=== PATIENT | female | born 1990 | race Caucasian/White ===

== ENCOUNTER 2024-11-26 19:26 | Emergency (ER) | payer OTHER, SELFPAY ==
[2024-11-26 19:29] VITALS: BP 119/71
--- NOTE | 2024-11-26 19:35 | EDRN ---
Attempted to start orders in waiting area, pt refusing to give urine and blood at this time. Pt states 'I know I have a UTI and a different doctor already prescribed me antibiotics at urgent care'
[2024-11-26 21:19] LABS: Urine Albumin Negative (Neg - Trace); Urine Bilirubin Negative (Negative); Urine Character Clear (Clear); Urine Color Yellow; Urine Glucose Negative (Negative); Urine Ketone Negative (Negative); Urine Leukocyte 1+ (Negative); Urine Nitrite Negative (Negative); Urine Occult Blood 1+ (Negative); Urine Urobilinogen Negative (Neg - 1+)
[2024-11-26 21:20] LABS: % Basophils 0.5 % (0-2); % Immature Granulocytes 0.3 % (0-0.5); % Lymphocytes 12.3 % (20.5-51.1); % Monocytes 5.4 % (1.7-9.3); % Neutrophils 80.5 % (42.2-75.2); Absolute Basophils 0.1 10^3/uL (0-0.2); Absolute Eosinophils 0.1 10^3/uL (0-0.7); Absolute Lymphocytes 1.4 10^3/uL (1.2-3.4); Absolute Monocytes 0.6 10^3/uL (0.1-0.6); Absolute Neutrophils 9.3 10^3/uL (1.4-6.5); Hematocrit 44.5 % (37.0-47.0); Hemoglobin 14.7 g/dL (12.0-16.0); Mean Corpuscular Hgb 30.6 pg (27.0-31.0); Mean Corpuscular Volume 92.7 fL (81.0-99.0); Mean Platelet Volume 9.4 fL (7.4-10.4); Nucleated Red Blood Cells % 0 %; Platelet Count 261 10^3/uL (130-400); Red Cell Dist. Width 13.9 % (11.5-14.5); White Blood Cell Count 11.5 10^3/uL (4.8-10.8)
[2024-11-26] MEDS: OMNIPAQUE 50 ML PO (21:24)
[2024-11-26 21:30] LABS: HCG, Serum Qualitative Screen Negative
[2024-11-26 21:30] LABS: Urine Squamous Cell >30 /LPF (Few)
[2024-11-26 21:31] LABS: Urine Bacteria Few (Negative); Urine White Cell 26-30 /HPF (0-5)
[2024-11-26 21:35] LABS: ALT (SGPT) 14 U/L (0-35); AST (SGOT) 18 U/L (14-36); Albumin 4.6 g/dl (3.5-5.0); Alkaline Phosphatase 60 U/L (38-126); Blood Urea Nitrogen 7 mg/dl (7-17); Calcium 9.9 mg/dl (8.4-10.2); Carbon Dioxide 25 mmol/L (22-30); Chloride 106 mmol/L (98-107); Glucose 92 mg/dl (70-99); Lipase 31 U/L (23-300); Potassium 4.3 mmol/L (3.5-5.1); Sodium 139 mmol/L (135-145); Total Bilirubin 1.5 mg/dl (0.2-1.3); Total Protein 7.7 g/dl (6.3-8.2); eGFR > 60.00
--- NOTE | 2024-11-26 21:57 | ED.GENMED ---
History of Present Illness
General
Chief Complaint: Abdominal Symptoms
Source: patient
Time Seen by Provider: 11/26/24 20:40
History of Present Illness
History of Present Illness:
Note:
CHIEF COMPLAINT(S)
Abdominal pain.
HISTORY OF PRESENT ILLNESS
The patient is a 34-year-old female who presented with severe abdominal pain. The pain began this morning when she woke to urinate and experienced a burning sensation typical of a urinary tract infection. The patient described the pain as involving
her entire abdomen, feeling firm and uncomfortable, especially with movement. She reported attempting self-management with increased water and cranberry juice intake. The patient sought evaluation at an urgent care center where antibiotics were
prescribed, although she has yet to collect them. Following the recommendations from urgent care, the patient expressed significant pain, describing it as severe enough to induce tears with movement. Additional symptoms include tactile fever, nausea
but no vomiting, urinary symptoms have since seem to have subsided. Patient does note a history of pyelonephritis in the past.
PAST SURGICAL HISTORY
History of hernia surgery as an .
SOCIAL HISTORY
Current marijuana use was acknowledged. The patient reported difficulties in obtaining asthma medication due to lack of insurance.
REVIEW OF SYSTEMS
- Gastrointestinal: Abdominal pain, nausea.
- Genitourinary: Burning sensation during urination, urgency, and frequency typical of UTI.
- Constitutional: Fever, chills, and sweats were present.
Past History
Past History
ED Past Medical History: Asthma
ED Past Surgical History: Orthopedic and Other
Review of Systems
Review of Systems
All Other Systems: ROS reviewed and negative except as documented in HPI and ROS
Phy Exam
Physical Exam
Physical Exam:
GENERAL: Alert , in no apparent distress
EYE: clear conjunctiva b/l
HEAD: NCAT
ENT: o/p clr, mmm.
CARDIAC: Regular rate and rhythm .
LUNGS: Clear breath sounds bilaterally, no acute respiratory distress, no wheezes/rales/rhonchi
ABDOMEN: Soft, grimacing with palpation in the right lower quadrant, no r/g, no cvat, negative Wolf sign, tenderness at McBurney's point
NEUROLOGICAL: Alert and oriented
SKIN: Warm and dry, skin intact.
MUSCULOSKELETAL: No edema, well perfused.
PSYCH: Normal and appropriate interaction.
Scores
Heart Failure Risk
Heart Failure Risk Score: Not Applicable
Heart Score for Chest Pain Patients
STEMI patient?: Not applicable
Withdrawal Assessment of Alcohol
Withdrawal Assessment Completed?: Not applicable
Course
Orders/Labs/Results
Orders:
Orders
11/26/24 20:46
Test Result ONCE
11/26/24 20:54
CT Abd/pel W Iv And Oral Contr Urgent
Comment:
Reason For Exam: RLQ pain
Iohexol [Omnipaque] See Protocol PO NOW STA
11/26/24 21:02
Complete Blood Count/With Diff Urgent
Comprehensive Metabolic Panel Urgent
HCG, Serum Qualitative Screen Urgent
Lipase Urgent
11/26/24 21:12
Urinalysis Reflex To Culture Urgent
Date Specimen was Collected: 11/26/24
Time Specimen was Collected: 21:04
Urine Microscopic Reflex Cult Urgent
Urine Culture Urgent
LACIE Source: U
Specimen Description:
Date Specimen was Collected: 11/26/24
Time Specimen was Collected: 21:04
11/27/24 00:10
Amoxicillin 875 mg/Clav 125 mg [Augmentin 875 mg/125 mg] 1 tablet PO NOW STA
Abnormal Lab Results
11/26/24 11/26/24
21:02 21:12
WBC 11.5 H 10^3/uL
(4.8-10.8)
Absolute Neuts (auto) 9.3 H 10^3/uL
(1.4-6.5)
Neutrophils % 80.5 H %
(42.2-75.2)
Lymphocytes % 12.3 L %
(20.5-51.1)
Total Bilirubin 1.5 H mg/dl
(0.2-1.3)
Ur Occult Blood Reflex 1+ A
(Negative)
Leukocyte Esterase Rfl 1+ A
(Negative)
Urine RBC 3-6 A /HPF
(0-2)
Urine WBC (Reflex) 26-30 A /HPF
(0-5)
Urine Bacteria (Reflex) Few A
(Negative)
11/26/24 21:02
11/26/24 21:02
Vital Signs
Initial and Last Documented VS:
Initial Vital Signs
Temp Pulse Resp BP Pulse Ox
98.4 F 89 16 119/71 99
11/26/24 19:29 11/26/24 19:29 11/26/24 19:29 11/26/24 19:29 11/26/24 19:29
Last Documented Vital Signs
Temp Pulse Resp BP Pulse Ox
98.3 F 77 18 127/62 100
11/27/24 00:00 11/27/24 00:00 11/27/24 00:00 11/27/24 00:00 11/27/24 00:00
MDM/Problems Addressed
Differential Diagnosis Includes:
The Differential Diagnosis includes, in no particular order and is not limited to:
- Pyelonephritis
- Appendicitis
- Nephrolithiasis
- Urinary tract infection
- Diverticulitis
- Gastroenteritis
- Pelvic inflammatory disease
- Ectopic
- Ovarian cyst rupture
- Inflammatory bowel disease.
MDM/Problems Addressed:
The plan involves obtaining a urine sample for analysis and conducting blood tests. An abdominal CT scan with IV contrast will be performed to rule out appendicitis and assess other potential intra-abdominal causes. Patient is declining anything
for pain or nausea at present time and advised that if it any of her symptoms are to worsen that we can then give her medications to help keep her comfortable.
*Radiology
Radiology exam reviewed: radiology read reviewed
*Pulse Oximetry
SaO2: 99
Oxygen Mode of Delivery: Room air
*Critical Care Note
Total Time (30-74mins, 75-104mins- exclusive of procedures): Not Applicable
Patient Management
Escalation/DeEscalation of care consider admission/obs:
CT scan shows no acute intra-abdominal pathologies. Her urine was convincing for urinary tract infection combined with symptoms patient discussed. She is unsure as to what antibiotic she was discharged home with from the urgent care, unfortunately
did not pick this medication up tonight. Will treat with a dose of Augmentin here so patient does have an antibiotic for this evening. Patient also notes she recently reobtained her health insurance and is requesting a refill of her albuterol
inhaler which was also sent to her pharmacy. Patient aware of return precautions. Otherwise stable for discharge home.
ED Attending Note
-
Portions of this chart may have been created with voice recognition software.� Occasional wrong word or��sound alike� substitutions may have occurred due to the inherent limitations of voice recognition software.
Discharge Plan
Departure
Patient Disposition: Home (Routine Discharge)
Date of Disposition: 11/27/24
Time of Disposition: 00:10
Patient with high blood pressure during this ER visit?: No
Discharge Problem:
UTI (urinary tract infection)
Instructions: Urinary tract infection - Discharge instructions
Prescriptions:
New
albuterol sulfate [Ventolin HFA] 90 mcg/actuation HFA aerosol inhaler
2 puff inhalation QID PRN (Reason: shortness of breath or wheezing) Qty: 6.7 0RF
Referrals:
Koby Mosqueda MD [Family Provider, Family Practice]
Interventions
Interventions:
*Risk Screen - Suicide Last Done: 11/26/24 19:29
*General Assessment Last Done: 11/27/24 00:30
*Neglect/Abuse Screening Last Done: 11/26/24 19:29
*ED- Fall Risk Assessment Last Done: 11/26/24 19:29
*ED COVID-19 Vaccine History Last Done: 11/27/24 00:30
*Nursing Disposition Last Done: 11/27/24 00:30
[facility] Assessment Last Done: 11/26/24 21:17
Discharge Date and Time
Discharge Date/Time: 11/27/24 00:31
Print Language: BOLIVIAN
[2024-11-27] VITALS: BP 127/62
[2024-11-27] MEDS: AUGMENTIN 875 MG/125 MG 1 TABLET PO (00:23)
== END 2024-11-27 00:31 | disposition home or self-care (01) ==
LOC: EMR 19:26
PROVIDERS: Physician Assistant Medical; EMERGENCY PHYSICIAN Student in an Organized Health Care Education/Training Program; FAMILY PHYSICIAN Family Medicine
DX: N39.0 Urinary tract infection, site not specified (principal); F12.90 Cannabis use, unspecified, uncomplicated; J45.909 Unspecified asthma, uncomplicated; Z59.71 Insufficient health insurance coverage
CPT/HCPCS: 99284; 74177; 80053; 81003; 81015; 83690; 84703; 85025; 87077; 87086; Q9967